=== PATIENT | female | born 1995 | race Caucasian/White ===

== ENCOUNTER 2017-02-06 18:14 | Emergency (ER) | payer OTHER ==
[~2017-02-06] VITALS: Ht 165.1 cm; Wt 74.0 kg
[~2017-02-06 18:14] MED LIST: NORG1TAB29 PO
[2017-02-06 18:16] VITALS: BP 127/92
[2017-02-06] MEDS ORDERED: HYDROcodone/APAP 5/325 TABLET PO ONE (18:30)
[2017-02-06] MEDS ORDERED: HYDROcodone/APAP 5/325 TABLET ONE (18:30)
== END 2017-02-06 19:27 | disposition home or self-care (01) ==
LOC: ED 19:00
DX: S53.441A Ulnar collateral ligament sprain of right elbow, initial encounter (principal); S53.431A Radial collateral ligament sprain of right elbow, initial encounter; G89.11 Acute pain due to trauma; V00.311A Fall from snowboard, initial encounter; Y93.23 Activity, snow (alpine) (downhill) skiing, snowboarding, sledding, tobogganing and snow tubing; Y93.89 Activity, other specified; Y99.8 Other external cause status
CPT/HCPCS: 99284

== ENCOUNTER 2017-06-16 01:33 | Emergency (ER) | payer OTHER ==
[~2017-06-16] VITALS: Ht 162.6 cm; Wt 66.5 kg
[2017-06-16 01:34] VITALS: BP 127/77
[2017-06-16] MEDS ORDERED: AMOXICILLIN 500 MG CAPSULE PO ONE (02:30)
== END 2017-06-16 03:14 | disposition home or self-care (01) ==
LOC: ED 02:43
DX: H66.002 Acute suppurative otitis media without spontaneous rupture of ear drum, left ear (principal); J06.9 Acute upper respiratory infection, unspecified
CPT/HCPCS: 99283

== ENCOUNTER 2017-08-24 20:33 | Emergency (ER) | payer OTHER ==
[~2017-08-24] VITALS: Ht 165.1 cm; Wt 65.0 kg
[2017-08-24] MEDS ORDERED: DIAZEPAM 5 MG TABLET ONE (23:19)
[2017-08-24] MEDS ORDERED: MAALOX/HYOSCYAMINE/LIDOCAINE 45 ML BTL ONE (23:19)
[2017-08-24] MEDS ORDERED: MAALOX/HYOSCYAMINE/LIDOCAINE 45 ML BTL PO ONE ×2 (23:30)
[2017-08-24] MEDS ORDERED: DIAZEPAM 5 MG TABLET PO ONE ×2 (23:30)
[2017-08-25 00:15] VITALS: BP 121/79
== END 2017-08-25 00:18 | disposition home or self-care (01) ==
LOC: ED 23:56
DX: R07.89 Other chest pain (principal); Z87.891 Personal history of nicotine dependence
CPT/HCPCS: 71045; 93005; 99284